=== PATIENT | female | born 1985 | race Caucasian/White ===

== ENCOUNTER 2017-02-23 08:22 | Emergency (ER) | payer MEDICAID ==
[~2017-02-23] VITALS: Ht 157.5 cm; Wt 68.0 kg
[2017-02-23 08:25] VITALS: Ht 157.5 cm; Wt 68.0 kg
--- NOTE | 2017-02-23 09:08 | ERD ---
ER Documentation Chief Complaint Date/Time DATE: 02/23/17 TIME: 09:03 Chief Complaint Complains of post surgical abdomial pain HPI Patient is a 31-year-old female s/p , s/p appendectomy who presents to the emergency department for concerns of surgical wound problems. Patient states she had a 11 months ago. Patient states her last 3 days she noticed that her incision opened up slightly. Patient noted slight blood tinged discharge. She denies any purulent discharge. Surrounding areas not erythematous. Patient does report lifting heavy objects and laundry baskets recently. Patient denies any fevers or chills. Patient denies any abdominal pain, nausea, vomiting, diarrhea or LOC. ROS All systems reviewed and are negative except as per history of present illness. Medications Home Meds No Active Prescriptions or Reported Meds Allergies Allergies: Coded Allergies: No Known Allergy (Unverified , 04/08/16) FmHx Family History: No diabetes Physical Exam Vitals Vital Signs Date Time Temp Pulse Resp B/P Pulse Ox O2 Delivery O2 Flow Rate FiO2 02/23/17 08:25 98.0 78 20 114/60 99 Physical Exam GENERAL: Well-developed, well-nourished female. Appears in no acute distress. HEAD: Normocephalic, atraumatic. EYES: Pupils are equally reactive bilaterally. EOMs grossly intact. No conjunctival erythema. ENT: Moist mucous membranes. No uvula deviation. No kissing tonsils. NECK: Supple. No meningismus. Normal range of motion of the neck. LUNG: Clear to auscultation bilaterally. No rhonchi, wheezing, rales or coarse breath sounds. HEART: Regular rate and rhythm. No murmurs, rubs or gallops. ABDOMEN: Linear surgical scar noted above the patient's pubic symphysis. Slight superficial wound dehiscence noted of the left aspect of the incisional scar. No active bleeding or discharge. No surrounding erythema or warmth. Remaining surgical wound intact. Soft, nontender, and nondistended. Positive bowel sounds in all four quadrants. No rebound tenderness, no guarding. (-) McBurney's point tenderness. EXTREMITIES: Equal pulses bilaterally. No peripheral clubbing, cyanosis or edema. No unilateral leg swelling. NEUROLOGIC: Alert and oriented. Moving all four extremities without any difficulty. Normal speech. Steady gait. SKIN: Normal color. Warm and dry. No rashes or lesions. Procedures/MDM MEDICAL DECISION MAKING: This is a 31-year-old female presents for concerns of wound dehiscence to her C- section scar. Patient underwent 11 months ago. Patient denies any fevers or chills. Vital signs were reviewed. Patient is afebrile. Physical exam findings showed slight superficial wound dehiscence to the left aspect of the patient's incision. No significant wound dehiscence noted. No surrounding erythema, warmth or swelling noted. Steri-Strips were placed on the site area of wound dehiscence. At this time the patient's presentation is most consistent with slight wound dehiscence. Low suspicion for cellulitis, abscess , deep space infection, or complete wound dehiscence. Patient advised to avoid heavy lifting over the next few weeks to allow for healing. She advised to follow-up with her [employer] in the next 1-2 days. Referral information provided. DISCHARGE: At this time, the patient is stable for discharge and outpatient management. Wound care was discussed with the patient. I have instructed the patient to promptly return to the ER for any new or worsening symptoms including increasing pain, fever, warmth, redness or swelling. The patient and/or family expressed understanding of and agreement with this plan. All questions were answered. Home care instructions were provided. Departure Diagnosis: Primary Impression: Encounter for wound care Additional Impression: Wound dehiscence Condition: Stable Patient Instructions: Wound Care Referrals: [facility] YOU HAVE RECEIVED A MEDICAL SCREENING EXAM AND THE RESULTS INDICATE THAT YOU DO NOT HAVE A CONDITION THAT REQUIRES URGENT TREATMENT IN THE EMERGENCY DEPARTMENT. FURTHER EVALUATION AND TREATMENT OF YOUR CONDITION CAN WAIT UNTIL YOU ARE SEEN IN YOUR DOCTORS OFFICE WITHIN THE NEXT 1-2 DAYS. IT IS YOUR RESPONSIBILITY TO MAKE AN APPOINTMENT FOR FOLOW-UP CARE. IF YOU HAVE A PRIMARY DOCTOR --you should call your primary doctor and schedule an appointment IF YOU DO NOT HAVE A PRIMARY DOCTOR YOU CAN CALL OUR PHYSICIAN REFERRAL HOTLINE AT IF YOU CAN NOT AFFORD TO SEE A PHYSICIAN YOU CAN CHOSE FROM THE FOLLOWING [facility] CL[facility] [address] [facility]. [facility] [address] [facility]. [facility] [address] [facility]. [facility] [address] [facility]. [facility] [address] [facility]. [facility] [address] [facility]. [facility] YOU HAVE RECEIVED A MEDICAL SCREENING EXAM AND THE RESULTS INDICATE THAT YOU DO NOT HAVE A CONDITION THAT REQUIRES URGENT TREATMENT IN THE EMERGENCY DEPARTMENT. FURTHER EVALUATION AND TREATMENT OF YOUR CONDITION CAN WAIT UNTIL YOU ARE SEEN IN YOUR DOCTORS OFFICE WITHIN THE NEXT 1-2 DAYS. IT IS YOUR RESPONSIBILITY TO MAKE AN APPOINTMENT FOR FOLOW-UP CARE. IF YOU HAVE A PRIMARY DOCTOR --you should call your primary doctor and schedule and appointment IF YOU DO NOT HAVE A PRIMARY DOCTOR YOU CAN CALL OUR PHYSICIAN REFERRAL HOTLINE AT . IF YOU CAN NOT AFFORD TO SEE A PHYSICIAN YOU CAN CHOSE FROM THE FOLLOWING [facility] INSTITUTIONS: [facility] [address] [place] [address] [facility] [address] [place] [address] [facility] [address] [place] [address] [employer] [place] [address] [facility] [address] [place] [id number] OFFICE FAX [facility] [address] [place], [place] [phone] [place] [address] [place], [place] [id number] CRISTOBAL POWELL [address] [facility], [address] [id number] QUENTIN BRUNSON [address] [place], [place] [phone] [facility] [address] [place], [place] [phone] [id number] [facility] [id number] - DR MAK, JOSEFA [address], [facility] [id number] DR PINA, ZENA [address] [facility]. [address], [facility] [address] [address] SAINI, FARID [address] [place] [address] Additional Instructions: Llame al doctor MAANA y mayela michael KAVEH PARA DENTRO DE 1-2 XAVIER.Dgale a la secretaria que nosotros le instruimos hacer esta kaveh.Avise o llame si walters condicin se empeora antes de la kaveh. Regresa aqui si peor o no mejor. KENNY VILLANUEVA PA-C Feb 23, 2017 09:08
== END 2017-02-23 09:57 | disposition home or self-care (01) ==
LOC: FTE 08:22
DX: Z48.01 Encounter for change or removal of surgical wound dressing (principal); O90.0 Disruption of cesarean delivery wound; R10.9 Unspecified abdominal pain
CPT/HCPCS: 99282